=== PATIENT | male | born 1985 | race Caucasian/White ===

== ENCOUNTER 2021-05-27 12:55 | Emergency (ER) | payer OTHER ==
[~2021-05-27] VITALS: Ht 193 cm; Wt 141.8 kg
[2021-05-27 13:07] VITALS: BP 153/101
[2021-05-27 15:17] LABS: HIV ANTIBODY 1&2 RAPID NON-REACTIVE (Neg)
== END 2021-05-27 14:40 | disposition home or self-care (01) ==
LOC: ER 12:57
DX: S50.812A Abrasion of left forearm, initial encounter (principal); W50.3XXA Accidental bite by another person, initial encounter; Y93.89 Activity, other specified; Y92.89 Other specified places as the place of occurrence of the external cause; Y99.8 Other external cause status
CPT/HCPCS: 36415; 86703; 86704; 86705; 86706; 86803; 99283